=== PATIENT | female | born 1975 ===

== ENCOUNTER 2017-07-31 09:01 | Outpatient (CLI) | payer OTHER ==
[~2017-07-31] VITALS: Ht 152.4 cm; Wt 58.1 kg
== END 2017-07-31 09:15 | disposition home or self-care (01) ==
LOC: OFIC 805 09:01
DX: J38.2 Nodules of vocal cords (principal); J31.2 Chronic pharyngitis; R49.0 Dysphonia

== ENCOUNTER → 2020-08-15 | Outpatient (CLI) | payer OTHER | END | disposition home or self-care (01) | LOC: RAD 09:22 | PROVIDERS: ATTEND Ophthalmology | DX: R07.89 Other chest pain (principal) ==

== ENCOUNTER 2022-08-18 09:20 | Outpatient (CLI) | payer OTHER | END 2022-08-18 09:32 | disposition home or self-care (01) | LOC: SONOGRAMA 09:20 | PROVIDERS: ATTEND Internal Medicine Hepatology | DX: R10.11 Right upper quadrant pain (principal) ==

== ENCOUNTER 2023-04-03 10:14 | Outpatient (CLI) | payer OTHER | END 2023-04-03 10:22 | disposition home or self-care (01) | LOC: SONOGRAMA 10:14 | PROVIDERS: ATTEND Dermatology | DX: N92.5 Other specified irregular menstruation (principal) ==